=== PATIENT | female | born 1990 | race Hispanic/Latino ===

== ENCOUNTER 2019-04-17 16:27 | Emergency (ER) | payer OTHER ==
[~2019-04-17] VITALS: Ht 154.9 cm; Wt 52.7 kg
[~2019-04-17 16:27] MED LIST: AZITHROMYCIN250 MG PO; FAMCICLOVIR500 MG PO; MEDDOSEPAK PO; PRE-NATAL PO
[2019-04-17 18:35] VITALS: BP 129/84
== END 2019-04-17 18:35 | disposition home or self-care (01) ==
LOC: ED 16:27
DX: M79.631 Pain in right forearm (principal); Y04.0XXA Assault by unarmed brawl or fight, initial encounter; Y92.89 Other specified places as the place of occurrence of the external cause